=== PATIENT | male | born 1980 | race Caucasian/White ===

== ENCOUNTER 2022-12-29 21:16 | Inpatient (IN) | payer SELFPAY ==
[~2022-12-29] VITALS: Ht 175.3 cm; Wt 72.6 kg
[2022-12-29 21:20] VITALS: BP 119/79; PULSE 84; RESP 16; TEMP 97.4; O2SAT 98
[2022-12-29] MEDS ORDERED: NACL 0.9% 1,000 ML IV ONE ×2 (21:25→23:00)
[2022-12-29] MEDS ORDERED: ONDANSETRON 4 MG/2 ML VIAL IVP ONE (21:25)
[2022-12-29 22:28] LABS: BASOPHILS % (AUTO) 0.4 % (0.0-2.0); EOSINOPHILS # (AUTO) 0.1 K/uL (0-0.4); EOSINOPHILS % (AUTO) 1.1 % (0.0-4.0); HEMATOCRIT 43.4 % (36-52); LYMPHOCYTES % (AUTO) 33.2 % (20.5-51.1); MEAN CORPUSCULAR HEMOGLOBIN 33 pg (27-31); MEAN CORPUSCULAR HGB CONC 35 g/dL (33-37); MEAN CORPUSCULAR VOLUME 94.7 fL (80-94); MONOCYTES # (AUTO) 0.5 K/uL (0.8-1.0); MONOCYTES % (AUTO) 6.1 % (1.7-9.3); NEUTROPHILS # (AUTO) 5.3 K/uL (1.8-7.7); NEUTROPHILS % (AUTO) 59.2 % (42.2-75.2); PLATELET COUNT (AUTO) 205 K/uL (140-450); RED BLOOD CELL COUNT(AUTO) 4.58 MIL/uL (4.20-6.10); RED CELL DISTRIBUTION WIDTH 13.8 % (11.6-13.7); WHITE BLOOD COUNT (AUTO) 8.9 K/uL (4.8-10.8)
[2022-12-29] MEDS ORDERED: diphenhydrAMINE 50 MG/ML VIAL IVP ONE (22:45)
[2022-12-29] MEDS ORDERED: PROCHLORPERAZINE 10 MG/2 ML VIAL IVP ONE (22:45)
[2022-12-29 22:46] LABS: ALANINE AMINOTRANSFERASE 46 U/L (12-78); ALBUMIN 4.2 g/dL (3.4-5.0); ALCOHOL, BLOOD 323 mg/dL (<10); ALKALINE PHOSPHATASE 87 U/L (50-136); ANION GAP 16.5 (8-16); ASPARTATE AMINOTRANSFERASE 26 U/L (15-37); CALCIUM 8.4 mg/dL (8.5-10.1); CARBON DIOXIDE 22.8 mmol/L (21-32); CHLORIDE 102 mmol/L (98-107); CREATININE 0.8 mg/dL (0.6-1.3); GFR ARICAN-AMERICAN 135 mL/min (>90); GFR NON ARICAN-AMERICAN 112 mL/min (>90); GLUCOSE 134 mg/dL (74-106); POTASSIUM 3.3 mmol/L (3.5-5.1); SODIUM SERUM 138 mmol/L (136-145); TOTAL BILIRUBIN 1.1 mg/dL (0.0-1.0); TOTAL PROTEIN, SERUM 7.7 g/dL (6.4-8.2); UREA NITROGEN, BLOOD 10 mg/dL (7-18)
[2022-12-29 22:49] LABS: ACETAMINOPHEN < 0.5 ug/ml (10-30); SALICYLATE < 2.8 mg/dL (2.8-20.0)
[2022-12-29] MEDS ORDERED: DILTIAZEM 25 MG/5 ML VIAL IVP ONE ×3 (23:00→23:50)
[2022-12-29] MEDS ORDERED: MAG SULF 2000 MG/WATER PREMIX 50 ML IV ONE ×2 (23:00→23:50)
[2022-12-29] MEDS ORDERED: LORazepam 2 MG/ML VIAL IVP ONE (23:30)
[2022-12-29] MEDS ORDERED: POTASSIUM CHLORIDE 20% 40 MEQ/15 ML UDC PO ONE (23:50)
[2022-12-30] VITALS (20 sets, daily range): BP systolic 94–140; BP diastolic 47–98; PULSE 89–135; RESP 12–19; TEMP 97.7–99.1; O2SAT 95–98
[2022-12-30 00:17] LABS: APPEARANCE,URINE CLEAR (CLEAR); BILIRUBIN,URINE NEGATIVE (NEGATIVE); BLOOD, URINE NEGATIVE (NEGATIVE); COLOR,URINE YELLOW (YELLOW); LEUKOCYTE ESTERASE ,URINE NEGATIVE (NEGATIVE); NITRITE, URINE NEGATIVE (NEGATIVE); PROTEIN,URINE NEGATIVE (NEGATIVE); UGLUCOSE NEGATIVE (NEGATIVE); UROBILINOGEN,URINE 0.2 EU/dL (0.2 - 1)
[2022-12-30 00:20] LABS: AMPHETAMINE, URINE NEGATIVE ng/ml (NEG <=1000); BARBITURATE, URINE NEGATIVE ng/ml (NEG <=200); BENZODIAZEPINE, URINE NEGATIVE ng/mL (NEG <=200); CANNABINOID, URINE NEGATIVE ng/mL (NEG <=50); COCAINE, URINE NEGATIVE ng/mL (NEG <=300); OPIATE, URINE NEGATIVE ng/mL (NEG <=2000); PHENCYCLIDINE SCREEN,URINE NEGATIVE ng/mL (NEG <=25)
[2022-12-30] MEDS ORDERED: AMIODARONE 150 MG in DEXTROSE 5% 100 ML IV ONE ×2 (00:35→05:05)
[2022-12-30] MEDS ORDERED: DILTIAZEM 125 MG in DEXTROSE 5% 100 ML IV ONE (00:35)
[2022-12-30] MEDS ORDERED: diphenhydrAMINE 50 MG/ML VIAL IM ONE (00:55)
[2022-12-30] MEDS ORDERED: HALOPERIDOL IM 5 MG/ML VIAL IM ONE (00:55)
[2022-12-30] MEDS ORDERED: LORazepam 2 MG/ML VIAL IM ONE (00:55)
[2022-12-30] MEDS ORDERED: DILTIAZEM 125 MG/25 ML VIAL IV ONE ×2 (01:21→17:50)
[2022-12-30] MEDS ORDERED: AMIODARONE 150 MG/3 ML VIAL IV ONE ×3 (01:21→05:09)
[2022-12-30 01:37] LABS: FREE T4 (FREE THYROXINE) 0.83 ng/dL (0.76-1.46); THYROID STIMULATING HORMONE 0.75 uIU/mL (0.34-3.74)
[2022-12-30] MEDS ORDERED: AMIODARONE 450 MG in DEXTROSE 5% 250 ML IV ONE ×2 (02:10→03:05)
[2022-12-30] MEDS ORDERED: LORazepam 2 MG/ML VIAL IVP ONE (02:15)
[2022-12-30] MEDS: NACL 0.9% 1,000 ML IV SCH ×2 (09:03→15:20)
[2022-12-30] MEDS ORDERED: AMIODARONE 450 MG in DEXTROSE 5% 250 ML IV SCH (09:50)
[2022-12-30] MEDS ORDERED: KCL 20 MEQ IN 100 mL PREMIX 200 ML IV ONE (11:55)
[2022-12-30] MEDS ORDERED: KCL 20 MEQ IN 100 mL PREMIX 200 ML IV SCH (12:00)
[2022-12-30] MEDS ORDERED: LORazepam 2 MG/ML VIAL IVP PRN (12:20)
[2022-12-30] MEDS: KCL 20 MEQ IN 100 mL PREMIX 200 ML IV SCH ×2 (12:30→15:08)
[2022-12-30] MEDS: chlordiazePOXIDE 25 MG CAP PO SCH ×2 (13:17→16:58)
[2022-12-30] MEDS: DILTIAZEM 25 MG/5 ML VIAL IVP PRN ×2 (17:15→21:21)
[2022-12-30] MEDS ORDERED: DILTIAZEM 25 MG/5 ML VIAL IVP ONE (17:23)
[2022-12-31] VITALS (17 sets, daily range): BP systolic 128–166; BP diastolic 1–103; PULSE 74–101; RESP 12–20; TEMP 97.8–99.2; O2SAT 75–98
[2022-12-31 05:40] LABS: BASOPHILS % (AUTO) 0.2 % (0.0-2.0); EOSINOPHILS # (AUTO) 0.1 K/uL (0-0.4); EOSINOPHILS % (AUTO) 0.6 % (0.0-4.0); HEMATOCRIT 45.8 % (36-52); HEMOGLOBIN 15.7 g/dL (12.0-18.0); LYMPHOCYTES # (AUTO) 2.3 K/uL (2.0-11.5); LYMPHOCYTES % (AUTO) 16.7 % (20.5-51.1); MEAN CORPUSCULAR HEMOGLOBIN 33 pg (27-31); MEAN CORPUSCULAR HGB CONC 34 g/dL (33-37); MEAN CORPUSCULAR VOLUME 95.1 fL (80-94); MONOCYTES # (AUTO) 1.8 K/uL (0.8-1.0); MONOCYTES % (AUTO) 13.2 % (1.7-9.3); NEUTROPHILS # (AUTO) 9.4 K/uL (1.8-7.7); NEUTROPHILS % (AUTO) 69.3 % (42.2-75.2); PLATELET COUNT (AUTO) 190 K/uL (140-450); RED BLOOD CELL COUNT(AUTO) 4.82 MIL/uL (4.20-6.10); RED CELL DISTRIBUTION WIDTH 13.8 % (11.6-13.7); WHITE BLOOD COUNT (AUTO) 13.6 K/uL (4.8-10.8)
[2022-12-31 05:49] LABS: ALBUMIN 3.7 g/dL (3.4-5.0); CALCIUM 8.4 mg/dL (8.5-10.1); CARBON DIOXIDE 23.8 mmol/L (21-32); CREATININE 0.8 mg/dL (0.6-1.3); MAGNESIUM 1.9 mg/dL (1.8-2.4); PHOSPHORUS 3.2 mg/dL (2.5-4.9); POTASSIUM 3.8 mmol/L (3.5-5.1); TOTAL BILIRUBIN 3.4 mg/dL (0.0-1.0); TOTAL PROTEIN, SERUM 6.9 g/dL (6.4-8.2)
[2022-12-31] MEDS: chlordiazePOXIDE 25 MG CAP PO SCH ×3 (08:37→17:49)
[2022-12-31] MEDS: PANTOPRAZOLE 40 MG TABEC PO SCH (08:38)
[2022-12-31] MEDS: METOPROLOL 50 MG TAB PO SCH ×2 (09:00→20:32)
[2022-12-31] MEDS: HYDROcodone/APAP 5/325 MG 1 TAB TAB PO PRN (17:51)
[2023-01-01] VITALS: BP 135/86; PULSE 79; PULSE 80; RESP 18; TEMP 97.6; O2SAT 96
[2023-01-01 04:00] VITALS: BP 113/78; PULSE 78; PULSE 82; RESP 18; TEMP 97.5; O2SAT 96
[2023-01-01 06:30] LABS: BASOPHILS % (AUTO) 0.2 % (0.0-2.0); EOSINOPHILS # (AUTO) 0.2 K/uL (0-0.4); EOSINOPHILS % (AUTO) 1.3 % (0.0-4.0); HEMATOCRIT 47.4 % (36-52); HEMOGLOBIN 16.5 g/dL (12.0-18.0); LYMPHOCYTES # (AUTO) 2.4 K/uL (2.0-11.5); LYMPHOCYTES % (AUTO) 20.2 % (20.5-51.1); MEAN CORPUSCULAR HEMOGLOBIN 33 pg (27-31); MEAN CORPUSCULAR HGB CONC 35 g/dL (33-37); MEAN CORPUSCULAR VOLUME 94.9 fL (80-94); MONOCYTES # (AUTO) 1.8 K/uL (0.8-1.0); MONOCYTES % (AUTO) 14.7 % (1.7-9.3); NEUTROPHILS # (AUTO) 7.7 K/uL (1.8-7.7); NEUTROPHILS % (AUTO) 63.6 % (42.2-75.2); PLATELET COUNT (AUTO) 188 K/uL (140-450); RED BLOOD CELL COUNT(AUTO) 4.99 MIL/uL (4.20-6.10); RED CELL DISTRIBUTION WIDTH 13.9 % (11.6-13.7); WHITE BLOOD COUNT (AUTO) 12.1 K/uL (4.8-10.8)
[2023-01-01 06:39] LABS: ANION GAP 14.1 (8-16); CALCIUM 9.3 mg/dL (8.5-10.1); CARBON DIOXIDE 24.8 mmol/L (21-32); CREATININE 0.8 mg/dL (0.6-1.3); POTASSIUM 3.9 mmol/L (3.5-5.1)
[2023-01-01] MEDS ORDERED: DILTIAZEM 25 MG/5 ML VIAL IVP PRN (06:57)
[2023-01-01 08:00] VITALS: BP 134/80; PULSE 80; PULSE 81; RESP 20; TEMP 97.8; O2SAT 100
[2023-01-01] MEDS: HYDROcodone/APAP 5/325 MG 1 TAB TAB PO PRN ×2 (08:43)
[2023-01-01] MEDS: METOPROLOL 50 MG TAB PO SCH (08:43)
[2023-01-01] MEDS: chlordiazePOXIDE 25 MG CAP PO SCH (08:43)
[2023-01-01] MEDS: PANTOPRAZOLE 40 MG TABEC PO SCH (08:43)
[2023-01-01] MEDS ORDERED: METO50TE2 PO (10:42)
[2023-01-01 12:00] VITALS: BP 102/66; PULSE 73; PULSE 74; RESP 20; TEMP 97.4; O2SAT 100
[2023-01-01 14:48] VITALS: BP 102/66; PULSE 74; RESP 20; TEMP 97.4
== END 2023-01-01 15:30 | disposition home or self-care (01) | DRG 308 ==
LOC: MED 21:16 → MIC 12-30 05:50 → MTU 12-31 15:00
PROVIDERS: ADMIT Student in an Organized Health Care Education/Training Program; ATTEND Student in an Organized Health Care Education/Training Program
DX: I48.0 Paroxysmal atrial fibrillation (principal); G92.9 Unspecified toxic encephalopathy; E87.6 Hypokalemia; Y90.9 Presence of alcohol in blood, level not specified; F10.129 Alcohol abuse with intoxication, unspecified; Z79.01 Long term (current) use of anticoagulants
CPT/HCPCS: 36415; 70450; 71045; 80048; 80053; 80305; 81003; 82948; 83735; 84100; 84439; 84443; 85025; 87081; 93005; 93971; 96361; 96365; 96375; 99285; G0480; G0482; J0282; J0780; J1200; J1630; J1644; J2060; J2405; J3475; J3480; J3490; J7060; Q0092